=== PATIENT | male | born 1990 | race Caucasian/White ===

== ENCOUNTER 2019-10-16 15:27 | Emergency (ER) | payer MEDICARE, MEDICAID ==
[~2019-10-16] VITALS: Ht 188 cm; Wt 85.0 kg
[2019-10-16 15:40] VITALS: BP 152/70
--- NOTE | 2019-10-16 16:50 | NUR ---
LOCAL ANESTHESIA TO DEFORMED LEFT RING FINGER BY PROVIDER
[2019-10-16] MEDS ORDERED: LIDOCAINE 1%, 10ML INFIL ONE (17:00)
== END 2019-10-16 17:54 | disposition home or self-care (01) ==
LOC: ED 17:49
DX: S63.285A Dislocation of proximal interphalangeal joint of left ring finger, initial encounter (principal); S63.295A Dislocation of distal interphalangeal joint of left ring finger, initial encounter; F17.200 Nicotine dependence, unspecified, uncomplicated; X58.XXXA Exposure to other specified factors, initial encounter; Y93.89 Activity, other specified; Y92.488 Other paved roadways as the place of occurrence of the external cause; Y99.8 Other external cause status
CPT/HCPCS: 26770; 73130; 99284; J3490; 26742

== ENCOUNTER 2019-11-25 19:10 | Emergency (ER) | payer MEDICARE, MEDICAID ==
[~2019-11-25] VITALS: Ht 188 cm; Wt 90.0 kg
[2019-11-25 19:28] VITALS: BP 124/86
== END 2019-11-25 22:24 | disposition home or self-care (01) ==
LOC: ED 22:21
DX: S90.31XA Contusion of right foot, initial encounter (principal); B35.3 Tinea pedis; F17.200 Nicotine dependence, unspecified, uncomplicated; W22.8XXA Striking against or struck by other objects, initial encounter; Y93.89 Activity, other specified; Y92.410 Unspecified street and highway as the place of occurrence of the external cause; Y99.8 Other external cause status
CPT/HCPCS: 99283

== ENCOUNTER 2020-01-10 22:50 | Emergency (ER) | payer MEDICAID, MEDICARE ==
[~2020-01-10] VITALS: Ht 188 cm; Wt 83.7 kg
[2020-01-10 22:57] VITALS: BP 125/64
[2020-01-10] MEDS ORDERED: LIDOCAINE 1%-EPI 1:100K, 20ML ONE (23:54)
[2020-01-11] MEDS ORDERED: LIDOCAINE 1%-EPI 1:100K, 20ML INFIL ONE
[2020-01-11] MEDS ORDERED: DIPH,PERTUSS(ACELL),TET VAC/PF 0.5 ML IM-VACC ONE ×2
[2020-01-11] MEDS ORDERED: NEOSPORIN OINT. PKT 1 PACKET TP STA (00:04)
--- NOTE | 2020-01-11 00:05 | NUR ---
pt medicated per mar
[2020-01-11] MEDS ORDERED: NEOSPORIN OINT. PKT 1 PACKET ONE (00:11)
--- NOTE | 2020-01-11 00:20 | NUR ---
right hand wound applied bacitracin ointment and dressing
== END 2020-01-11 00:26 | disposition home or self-care (01) ==
LOC: ED 01-11 00:02
DX: S61.411A Laceration without foreign body of right hand, initial encounter (principal); W31.9XXA Contact with unspecified machinery, initial encounter; Y93.89 Activity, other specified; Y92.009 Unspecified place in unspecified non-institutional (private) residence as the place of occurrence of the external cause; Y99.8 Other external cause status
CPT/HCPCS: 12041; 90471; 90715; 99284

== ENCOUNTER 2020-10-28 00:57 | Emergency (ER) | payer MEDICARE ==
[~2020-10-28] VITALS: Ht 188 cm; Wt 100.0 kg
[2020-10-28] MEDS ORDERED: KETOROLAC 30 MG/1 ML IM ONE (01:30)
[2020-10-28] MEDS ORDERED: KETOROLAC 30 MG/1 ML ONE (01:38)
--- NOTE | 2020-10-28 01:42 | NUR ---
Assist RN: medicated patient per mar.
[2020-10-28 02:18] VITALS: BP 134/74
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
--- NOTE | 2020-10-28 03:01 | NUR ---
AIR SLPINT TO LEFT FOOT, POS CIRC CHECKS, CRUTCH TEACHING COMPLETE
== END 2020-10-28 03:04 | disposition home or self-care (01) ==
LOC: ED 02:16
DX: S90.02XA Contusion of left ankle, initial encounter (principal); F17.210 Nicotine dependence, cigarettes, uncomplicated; W22.8XXA Striking against or struck by other objects, initial encounter; Y93.89 Activity, other specified; Y92.009 Unspecified place in unspecified non-institutional (private) residence as the place of occurrence of the external cause; Y99.8 Other external cause status
CPT/HCPCS: 73610; 96372; 99283; 99406; J1885